=== PATIENT | female | born 1955 | race Caucasian/White ===

== ENCOUNTER → 2018-12-24 11:26 | Outpatient (CLI) | payer MEDICARE, MEDICAID ==
--- NOTE | 2018-12-27 09:40 | ST ---
PATIENT:ALFRED AVLENCIA MEDICAL RECORD: [id number] SEX: F LOCATION:[facility] ORDER #: ADMISSION DATE: 12/24/18 AGE OF PATIENT: 63 REFERRING PHYSICIAN: INTERPRETING PHYSICIAN: CARLY STANTON MD DATE OF SERVICE: 12/24/2018 INDICATIONS: Angina, hyperlipidemia, family history of coronary artery disease. The patient was exercised on standard Lexiscan protocol with 33 mCi of sestamibi injected at peak stress, 11 mCi used previously for rest images. FINDINGS: Gated SPECT reveals preserved ejection fraction at 69% with good wall motioning and thickening and brightening throughout all segments. SPECT imaging: Cardiolite was used as myocardial perfusion agent. There is reversibility anteriorly. This includes basal, mid, apical, anterior segments extending into the anterolateral segments as well. The degree of reversibility is moderate to severe. The amount of myocardium involved is moderate. OVERALL IMPRESSION: This is an lcraypmgqvay-qo-[id number] risk nuclear stress test with a moderate amount of myocardium involved anteriorly and anterolaterally with reversibility suggestive of hemodynamically significant coronary artery disease. We will proceed with coronary angiography as a followup study. TRANSINT:[id number] Voice Confirmation ID: [id number] DOCUMENT ID: [id number] CARLY STANTON MD at 0940 CC: TREE GUEVARA MD [id number] DICTATION DATE: 12/24/18 165 ABATTOIR MANAGER: 12/25/18 0423 DEP CLI 12/24/18 [place] [id number] [place] [id number]
== END | disposition home or self-care (01) ==
LOC: D.HCCARDIO 11:26
PROVIDERS: ATTEND Internal Medicine Interventional Cardiology
DX: R07.9 Chest pain, unspecified (principal)

== ENCOUNTER → 2019-01-01 08:11 | Outpatient (CLI) | payer MEDICARE, MEDICAID ==
--- NOTE | ~2019-01-01 | HEMODYNAMI ---
PATIENT:ALFRED VALENCIA MEDICAL RECORD: [id number] : 53 LOCATION:D.CAT ADMISSION DATE: 01/01/19 Generatedon:01/01/20199:53 Patient name: ALFRED VALENCIA Patient #: [id number] SSN: : 1955 Date of study: 01/01/2019 Page: Of Hemodynamic Procedure Report Patient Data Patient Demographics Procedure consent was obtained First Name: ALFRED Gender: Female Last Name: ERIK : 1955 Patient #: [id number] Age: 63 year(s) Race: Unknown Additional ID: [id number] Contact details [address]: [address] [place] [address] State: [place] City: [place] Zip code: [address] Past Medical History Allergies Allergen Reaction Date Comments Reported Erythromycin 01/01/2019 Admission Admission Data Admission Date: 01/01/2019 Admission Time: 8:11 Height (in.): 66 BSA: 2.03 (m2) Height (cm.): 167.64 BMI: 33.57 (kg/m2) Weight (lbs.): 208 Weight (kg.): 94.35 Lab Results Lab Result Date: 01/01/2019 Lab Result Time: 8:45 Biochemistry Name Units Result Min Max BUN mg/dl 23 --(----)-* 7 18 Creatinine mg/dl 1.1 --(--*-)-- 0.6 1.3 CBC Name Units Result Min Max Hematocrit % 42.6 --(*---)-- 42 54 Hemoglobin g/dl 14.6 --(-*--)-- 13.5 17.5 Procedure Procedure Types Cath Procedure Diagnostic Procedure [facility] w/Coronaries Procedure Description Procedure Date Procedure Date: 01/01/2019 Procedure Start Time: 9:44 Procedure End Time: 9:49 Procedure Staff Name Function Tramaine Ferrari MD Performing Physician Garry Davis RT Monitor Lynda Yee RT Scrub Josue Davalos RN Nurse Edison Moncada RN [employer] Procedure Data Cath Procedure Fluoroscopy Diagnostic fluoroscopy Total fluoroscopy Time: 0.9 time: 0.9 min min Diagnostic fluoroscopy Total fluoroscopy dose: 286 dose: 286 mGy mGy Contrast Material Contrast Material Type Amount (ml) Isovue 300 30 Entry Location Entry Primary Successful Side Size Upsize Upsize Entry Closure Mchugh ccessful Closure Location (Fr) 1 (Fr) 2 (Fr) Remarks Device Remarks Radial Right 6 Fr Mechanical artery Short Compression Estimated blood loss: 5 ml Diagnostic catheters Device Type Used For End Catheter Placement DIAGNOSTIC [place] 110cm 5 Procedure Fr catheter ([id number]) Procedure Complications No complications Procedure Medications Medication Administration Route Dosage Oxygen etCO2 Nasal cannula 2 l/min Zofran I.V. 4 mg Lidocaine 2% added to field 20 Heparin Flush Bag added to field 2 bags (1000units/500ml NS) 0.9% NaCl I.V. 100 ml/hr Radial Cocktail added to field 1 syringe (Verapamil 2mg/Nitro 400mcg/Heparin 1500units) Versed I.V. 1 mg Fentanyl I.V. 50 mcg Hemodynamics Rest BSA: 2.03 (m2) HGB: 14.6 (g/dl) O2 Consumption: Estimated: 172.73 (ml/min) O2 Co nsumption indexed: Estimated:85.09 (ml/min/m) Heart Rate: 47 (bpm) Snapshots Pre Cath Intra NCS Post Cath Vital Signs Time Heart Resp SPO2 etCO2 NIBP (mmHg) Rhythm Pain Sedation Rate (ipm) (%) (mmHg) Status Level (bpm) 9:29:13 47 18 99 47.6 185/81(151) SB 0 (11) 10(A) , No pain 9:34:02 47 17 98 44.6 147/66(122) SB 0 (11) 10(A) , No pain 9:38:35 46 16 94 48.3 146/76(131) SB 0 (11) 10(A) , No pain 9:43:07 45 19 97 48.3 141/71(118) SB 0 (11) 9(A) , No pain 9:47:31 49 15 94 29 109/68(94) SB 0 (11) 9(A) , No pain 9:52:22 46 15 94 37.9 114/66(96) SB 0 (11) 10(A) , No pain Medications Time Medication Route Dose Verified Delivered Reason Notes Effectiveness by by 9::38 Oxygen etCO2 2 l/min Tramaine Salas used for Nasal Vega Davalos RN procedure cannula 9:28:45 Zofran I.V. 4 mg Tramaine Salas Per Vega Davalos RN physician 9:28:55 Lidocaine 2% added 20ml Tramaine Redd for local to vial Vega Ferrari MD anesthetic field 9:29:01 Heparin Flush added 2 bags Tramaine Redd used for Bag to Vega Ferrari MD procedure (1000units/500ml field NS) 9:29:17 0.9% NaCl I.V. 100 Tramainetimi Salas Per ml/hr Vega Davalos RN physician 9:29:23 Radial Cocktail added 1 Tramaine Redd for (Verapamil to syringe Vega Ferrari MD vasodilation 2mg/Nitro field 400mcg/Heparin 1500units) 9:42:03 Versed I.V. 1 mg Tramaine Salas for sedation Vega Davalos RN 9:42:09 Fentanyl I.V. 50 mcg Tramaine Salas for sedation Vega Davalos RN Procedure Log Time Note 9:05:29 Signed procedure consent form obtained from patient. 9:05:37 Diagnostic Cath status Elective 9:05:38 Time tracking: Regular hours (M-F 7:00 - 5:00) 9:05:44 Plan of Care:Hemodynamics will remain stable., Cardiac rhythm will remain stable., Comfort level will be maintained., Respiratory function will remain adequate., Patient/ family verbilizes understanding of procedure., Procedure tolerated without complication., Recovers from procedure without complications.. 9:06:25 H&P Date Dictated: 12/12/2018 Within 30 days and on chart., H&P Addendum completed by physician on day of procedure. (MUST COMPLETE FOR ALL OUTPATIENTS). 9:06:35 Patient Height : 66 inches 9:06:38 Patient Weight : 208 lbs 9:06:52 Patient allergic to Erythromycin 9:09:09 Garry Davis RT(R) sent for patient. Start room use. 9:14:18 Patient received from Pre/Post Procedure Room to CCL 1 Alert and oriented. Tansferred to table in Supine position. 9:14:20 Warm blankets applied, and vane hugger turned on for patient comfort. 9:14:20 Correct patient and procedure confirmed by team. 9:14:21 ECG and BP/O2 sat monitors applied to patient. ::38 Baseline sample Acquired. ::38 Vital chart was started 9:28:03 Rhythm: sinus bradycardia 9::08 Full Disclosure recording started 9::10 Pre-procedure instructions explained to patient. 9::10 Pre-op teaching completed and patient verbalized understanding. 9:28:12 Family in waiting room. 9::13 Patient NPO since Midnight. 9:28:16 Is the patient allergic to Iodine/contrast media? No. 9::38 Oxygen 2 l/min etCO2 Nasal cannula was administered by Josue Davalos RN; used for procedure; 9::45 Zofran 4 mg I.V. was administered by Josue Davalos RN; Per physician; 9::50 Is patient on blood thinner?No 9:28:51 Patient diabetic? No. 9::55 Lidocaine 2% 20ml vial added to field was administered by Tramaine Ferrari MD; for local anesthetic; 9:28:59 Previous problem with sedation/anesthesia? Yes nausea 9:29:00 Snore? Yes 9:29:01 Heparin Flush Bag (1000units/500ml NS) 2 bags added to field was administered by Tramaine Ferrari MD; used for procedure; 9:29:01 Sleep apnea? Yes 9:29:02 Deviated septum? No 9:29:02 Opens mouth fully? Yes 9:29:03 Sticks out tongue? Yes 9:29:05 Airway obstruction? No ? 9:29:08 Dentures? No ? 9:29:10 Pre procedure: right dorsailis pedis pulse 2+ Normal; easily identifiable; not easily obliterated 9:29:12 Modified Anthony's test Ulnar < 7 seconds 9:29:13 Patient pain scale 0/10 ?. 9:29:17 0.9% NaCl 100 ml/hr I.V. was administered by Josue Davalos RN; Per physician; 9:29:19 IV patent on arrival in left hand with 0.9% NaCl at [facility]. 9:29:23 Radial Cocktail (Verapamil 2mg/Nitro 400mcg/Heparin 1500units) 1 syringe added to field was administered by Tramaine Ferrari MD; for vasodilation; 9:30:39 Physician paged 9:30:48 Lab Result : BUN 23 mg/dl 9::48 Lab Result : Creatinine 1.1 mg/dl 9::48 Lab Result : Hemoglobin 14.6 g/dl 9::48 Lab Result : Hematocrit 42.6 % 9:30:50 Lab results completed and on chart. 9:30:53 Right Radial & Right Groin area was prepped with chlora-prep and draped in sterile fashion 9:31:22 Alarms reviewed by R. N. 9:31:22 Sharps counted by scrub and verified by R.N. 9:31:25 Use device set Radial Dx or PCI 9:32:21 ACIST Syringe (86727) opened to sterile field. 9:32:22 Medline Cath Pack ([id number]) opened to sterile field. 9:32:23 ACIST Hand Control (45239) opened to sterile field. 9:32:23 ACIST Manifold (19035) opened to sterile field. 9:32:23 Tegaderm 4 x 4 (1626W) opened to sterile field. 9:32:24 MBrace Wrist Support ([id number]) opened to sterile field. 9:32:25 Bag Decanter (2001S) opened to sterile field. 9:32:26 DIAGNOSTIC WIRE .035 260cm J wire (097908) opened to sterile field. 9:32:27 SHEATH 6FR Slender (01-0078) opened to sterile field. 9:39:22 Zero performed for pressure channel P1 9:41:33 Physician arrived 9:41:33 --------ALL STOP TIME OUT------ 9:41:34 Final Timeout: patient, procedure, and site verified with staff and physician. All members of the team are in agreement. 9:41:56 Right Radial & Right Groin site verified by team. 9:41:58 Maximum allowable Isovue 300 dose 300ml. Physician notified. (300ml for normal creatinines. For patients with creatinine of 1.7 or higher multiply weight(kg) x 5 divided by creatinine.) 9:42:02 Fire Safety Assessment: A--An alcohol-based skin anteseptic being used preoperatively., C--Open oxygen or nitrous oxide is being used., D--An ESU, laser, or fiber-optic light is being used. 9:42:03 Versed 1 mg I.V. was administered by Josue Davalos RN; for sedation; 9:42:05 Physical assessment completed. ASA score P 2 - A patient with mild systemic disease as per Tramaine Ferrari MD. 9:42:09 Fentanyl 50 mcg I.V. was administered by Josue Davalos RN; for sedation; 9:42:09 Sedation plan: IV Moderate Sedation Medication:Versed, Fentanyl 9:44:08 Procedure started. 9:44:17 Local anesthetic to right radial artery with Lidocaine 2% by Tramaine Ferrari MD.INITIAL ACCESS ONLY 9:45:07 A 6 Fr Short sheath was inserted into the Right Radial artery 9:45:17 A DIAGNOSTIC [place] 110cm 5 Fr catheter (226607) was advanced over the wire and used for Procedure. 9:46:19 LV gram done using TALBERT 9:46:23 Injector settings: Ml/sec: 5, Volume: 15, 9:46:34 LV hemodynamics recorded. 9:46:39 EF : 55 % 9:46:41 LCA angiography performed. 9:47:00 RCA angiography performed. 9:47:38 Catheter removed. 9:47:40 TR BAND Standard ([id number]) opened to sterile field. 9:47:50 Sheath removed intact; hemostasis achieved with Mechanical Compression to the Right Radial artery. 9:47:51 Procedure ended.(Physican Out) 9:48:20 Fluoroscopy time 00.90 minutes. 9:48:24 Fluoroscopy dose: 286 mGy 9:48:24 Flurop Dose total: 286 9:48:32 Contrast amount:Isovue 300 30ml. 9:48:35 Sharps counted by scrub and verified by R.N. 9:48:38 TR band inflated with 11cc of air. 9:48:39 Insertion/operative site no bleeding no hematoma. 9:48:45 Post right radial artery:stable, soft, clean and dry 9:48:46 Post Procedure Pulses reassessed and unchanged 9:48:48 Post-procedure physical assessment completed. ASA score P 2 - A patient with mild systemic disease as per Tramaine Ferrari MD. 9:48:50 Post procedure rhythm: unchanged. 9:48:55 Estimated blood loss: 5 ml 9:48:56 Post procedure instruction explained to patient.Patient verbalizes understanding. 9:48:57 Patient needs reinforcement of post procedure teaching. 9:49:36 Procedure and supply charges have been captured, reviewed, submitted and are correct. 9:49:38 Procedure Complication : No complications 9:49:40 Vital chart was stopped 9:49:40 See physician's report for complete and final results. 9:49:42 Report given to Pre/Post Procedure Room. 9:49:44 Patient transfered to Pre/Post Procedure Room with Stretcher. 9:49:58 Procedure ended. 9:49:58 Full Disclosure recording stopped 9:50:01 End room use (Document Last) Device Usage Item Name Manufacture Quantity Catalog Hospital Part Current Minimal Lot# / Number Charge Number Stock Stock Serial# Code ACIST Acist 1 19473 [id number] 196772 972924 20 Syringe Medical (70285) Systems Inc Medline Medline 1 [id number] 399911 34878 048474 5 Cath Pack ([id number]) ACIST Hand Acist 1 97156 055443 284068 546956 5 Control Medical (01027) Systems Inc ACIST Acist 1 57597 300278 949737 358079 5 Manifold Medical (39659) Systems Inc Tegaderm 4 3M 1 1626W 642367 642371 754015 5 x 4 (1626W) MBrace Advanced 1 140-0250-00 560994 11860 337349 5 Wrist Vascular Support Dynamics ([id number]) Bag Microtek 1 2001S 547763 83222 249953 5 Decanter Medical Inc. (2001S) DIAGNOSTIC [facility] [place] 1 497681 904285 854354 536911 30 WIRE .035 260cm J wire (390093) SHEATH 6FR Terumo 1 [id number] 688054 796218 856231 5 Slender (80-1060) DIAGNOSTIC Terumo 1 40-5983 963558 298810 488908 5 [place] 110cm 5 Fr catheter (743116) TR BAND Terumo 1 [id number] 040752 884339 824019 40 Standard ([id number]) Signature Audit [place] Stage Time Signature Unsigned Intra-Procedure 01/01/2019 Garry Davis 9:53:00 AM RT(R) Signatures Monitor : Garry Davis RT Signature : Date : Time : [address] [place] [address]
[~2019-01-01 08:11] MED LIST: BUSPAR 15 MG TA15 MG PO; CARAFATE1 G PO; CELEXA20 MG PO; LEVOTHYROXINE75 MCG PO; LYRICA300 MG PO; MOBIC7.5 MG PO; MYRBETRIQ50 MG PO; PREVALITE POWD231 GM PO; RANITIDINE HCL150 M1 PO; SYMBICORT 16010.2 GM INH; TENORMIN25 MG PO; TYLENOL W/CODEI1 TAB PO
[2019-01-01 08:56] VITALS: BP 133/53; BMI 33.3
[2019-01-01 08:59] LABS: BASOPHILS 0.4 % (0-2); EOSINOPHILS 2.7 % (0-7); HEMATOCRIT 42.6 % (36.0-48.0); HEMOGLOBIN 14.6 g/dL (12-16); IMMATURE GRANULOCYTES 0.6 % (0-5); MCH 30.3 pg (26.0-34.0); MCHC 34.3 g/dL (31.0-37.0); MCV 88.4 fL (80.0-100.0); MONOCYTES 11.1 % (2-11); NEUTROPHILS 45.2 % (40-80); PLATELET COUNT 242 10x3/uL (130-400); RBC 4.82 10x6/uL (4.00-5.40); RDW 12.6 % (11.5-14.5); WBC 7.7 10x3/uL (4.8-10.8)
[2019-01-01 09:10] LABS: ANION GAP 12.2 mmol/L (8-16); CALCIUM 9.2 mg/dL (8.5-10.1); CARBON DIOXIDE 28.2 mmol/L (21.0-32.0); CREATININE - SERUM 1.1 mg/dL (0.6-1.3); POTASSIUM - SERUM 4.4 mmol/L (3.5-5.1)
--- NOTE | 2019-01-01 10:06 | NUR ---
RECIEVED TO ROOM VIA STRETCHER FROM MANAGER ENTRY WITH TR BAND TO R/WRIST CDI NO BLEEDING OR HEMATOMA. CAP REFILL IS BRISK WITH R/HAND WARM TO TOUCH. PATIENT CONNECTED TO MONITOR FOR OBSERVATION WITH HR 48 BP 116/57.
--- NOTE | 2019-01-01 10:15 | NUR ---
TR BAND REMAINS CDI WITH NO BLEEDING OR HEMATOMA. SB AT 48 WITH BP 105/57. CALL LIGHT IN REACH WITH FAMILY AT BEDSIDE
--- NOTE | 2019-01-01 10:41 | NUR ---
PATIENT CONTINUES TO REST WITH VSS TR BAND TO R/WRIST IS CDI NO BLEEDING. PO FLUIDS TO BEDSIDE
--- NOTE | 2019-01-01 11:00 | NUR ---
REPOSITIONED TO [facility] UP 30 FOR COMFORT. SANDWICH AND SODA TO BEDSIDE PATIENT DENIED CHEST PAIN OR NAUSEA. 3 CC AIR REMOVED FROM TR BAND WITH NO BLEEDING
--- NOTE | 2019-01-01 11:18 | NUR ---
3 CC AIR REMOVED FROM TR BAND NO BLEEDING NOTED
--- NOTE | 2019-01-01 11:38 | NUR ---
2 CC AIR REMOVED FROM TR BAND WITH NO BLEEDING OR HEMATOMA
--- NOTE | 2019-01-01 11:44 | NUR ---
3 CC AIR REMOVED FROM TR BAND WITH NO BLEEDING. PIV REMOVED WITH DRESSING APPLIED. PATIENT DENIED CHEST PAIN UP TO GET DRESSED FOR DISCHARGE HOME
--- NOTE | 2019-01-01 12:25 | NUR ---
VERBAL AND WRITTEN DISCHARGE GONE OVER WITH PATIENT AND FAMILY. TR BAND REMOVED WITH DRESSING APPLIED. PATIENT LEFT VIA WC TO [facility] FOR TRANSPORT HOME
--- NOTE | 2019-01-01 17:18 | OP ---
PATIENT NAME: ALFRED VALENCIA MEDICAL RECORD: [id number] :53 LOCATION:D.CAT ADMISSION DATE: SURGEON: CARLY STANTON MD DATE OF OPERATION: 01/01/2019 PROCEDURES: 1. Left heart catheterization. 2. Selective coronary angiography. 3. Left ventriculogram. INDICATION: Angina, abnormal nuclear stress test. PROCEDURE IN DETAIL: After informed consent was obtained and after a detailed description of the risks, benefits as well as alternative therapies, the patient proceed with angiogram and heart catheterization. The right radial area was prepped and draped in normal sterile fashion. Right radial artery was cannulated via modified Seldinger technique with placement of 5-Romanian sheath. All catheters exchanged through this sheath. FINDINGS: The left ventriculogram was performed in standard 30-degree TALBERT view, reveals good cardiac wall motion, ejection fraction is 60%. SELECTIVE CORONARY ANGIOGRAPHY: 1. Left main showed no significant angiographic disease. 2. Left anterior descending has no significant disease. 3. Left circumflex has no significant disease. 4. Right coronary has mild irregularities, but no flow-limiting stenosis. No stenosis is greater than 10% to 20%. OVERALL IMPRESSION: Minimal coronary artery disease is present. No flow-limiting stenosis. Nuclear stress test was false positive. Chest pain is noncardiac in etiology. No further cardiac workup needs to be ascertained. TRANSINT:[id number] Voice Confirmation ID: [id number] DOCUMENT ID: [id number] CARLY STANTON MD at 1718 CC: [id number] DICTATION DATE: 01/01/19 0950 YOKE PRESSER: 01/01/19 1031 [facility] [address] [place] [address]
== END | disposition home or self-care (01) ==
LOC: D.CATH 08:11
PROVIDERS: ATTEND Internal Medicine Interventional Cardiology
DX: R07.89 Other chest pain (principal); I25.10 Atherosclerotic heart disease of native coronary artery without angina pectoris; Z01.812 Encounter for preprocedural laboratory examination